=== PATIENT | female | born 1995 | race Two or more races ===

== ENCOUNTER 2025-04-23 02:04 | Inpatient (IN) | payer MEDICAID, SELFPAY ==
[2025-04-23] VITALS (24 sets, daily range): BP systolic 123–155; BP diastolic 65–94; PULSE 69–90; RESP 14–99; TEMP 36.4–37.1; O2SAT 97–99; BMI 32.5
[2025-04-23 03:19] LABS: Basophils % (Auto) 0 % (0-2.5); Eosinophils % (Auto) 0 % (0-10); Hematocrit 34.1 % (36.0-46.0); Hemoglobin 11.9 g/dL (12.0-16.0); Immature Granulocytes % (Auto) 0 % (0-0); Immature Granulocytes Auto 0.03 Thou/mm3 (0.00-0.00); Lymphocytes # (Auto) 2.6 Thou/mm3 (1.0-4.8); Lymphocytes % (Auto) 30 % (10-50); Mean Corpuscular HGB Conc 34.9 g/dl (31.0-37.0); Mean Corpuscular Hemoglobin 32.7 pg (25.0-35.0); Mean Corpuscular Volume 94 fL (80-100); Monocytes # (Auto) 0.8 Thou/mm3 (0.0-0.8); Monocytes % (Auto) 10 % (0-12); Neutrophils % (Auto) 59 % (37-80); Nucleated Red Blood Cell % 0 /100 WBC (0); Platelet Count 251 Thou/mm3 (140-440); RDW Standard Deviation 44.3 fL (36.4-46.3); Red Blood Count 3.64 Miln/mm3 (4.00-5.20); White Blood Count 8.4 Thou/mm3 (3.6-11.0)
[2025-04-23 03:28] LABS: Fibrinogen 441 mg/dL (175-375); INR 0.9 (0.9-1.3); Partial Thromboplastin Time 25.6 Seconds (22.0-36.0); Prothrombin Time 10.3 Seconds (9.0-12.2)
[2025-04-23 03:32] LABS: Alanine Aminotransferase 13 U/L (10-49); Albumin, Serum 3.8 gm/dL (3.5-5.0); Albumin/Globulin Ratio 1.4 (1.2-2.2); Alkaline Phosphatase 111 U/L (46-116); Anion Gap 11 (7-16); Aspartate Amino Transferase 18 U/L (0-34); BUN/Creatinine Ratio 16 Ratio (12-20); Bilirubin,Total 0.3 mg/dL (0.3-1.2); Blood Urea Nitrogen 8 mg/dL (9-23); Calcium 8.9 mg/dL (8.3-10.6); Calcium (Corrected) 9.1 mg/dL (8.5-10.1); Carbon Dioxide 23.5 mMol/L (20.0-31.0); Chloride 104 mMol/L (98-107); Creatinine (Component) 0.5 mg/dL (0.6-1.3); Estimated Creatinine Clearance 179.4 mL/min (>60); Globulin 2.8 gm/dL (2.3-3.5); Glucose 99 mg/dL (74-106); Osmolality,Calculated 273 (275-295); Potassium 3.4 mMol/L (3.4-5.1); Sodium 138 mMol/L (136-145); Total Protein 6.6 gm/dL (5.7-8.2); Uric Acid 4.9 mg/dL (3.1-7.8); eGFR > 60 See Note
[2025-04-23] MEDS: fentaNYL CIT INJ 50 mCg/ML AMP 2ML 100 MCG IVP (03:39)
[2025-04-23] MEDS: Ampicillin Inj 2,000 MG in SODIUM CHLORIDE 0.9% (POP) 100 ML 200 MG IV (03:39)
[2025-04-23 03:50] LABS: Syphilis Nonreactive (Nonreactive)
[2025-04-23 04:35] LABS: Collection Type, Urine Clean Catch
[2025-04-23] MEDS: OXYTOCIN in NS 20 units 20 UNIT/1,000 ML BAG 125 UNIT IV (05:07)
[2025-04-23 05:13] LABS: Bilirubin,Urine Negative (Negative); Blood,Urine Negative (Negative); Clarity,Urine Clear (Clear/Hazy); Color,Urine Colorless (Lt Yel-Yel); Glucose, Urine Trace (Negative); Ketones,Urine Negative (Negative); Leukocyte Esterase,Urine Negative (Negative); Nitrite,Urine Negative (Negative); PH,Urine 6.5 (5.0-7.0); Protein,Urine Trace (Neg - Trace); RBC,Urine 1 /hpf (0-3); Specific Gravity,Urine 1.017 (1.001-1.035); Squamous Epithelial Cell,Urine 1 /hpf (0-5); Urobilinogen,Urine Negative mg/dL (0.0-1.0); WBC,Urine 2 /hpf (0-5)
[2025-04-23 05:20] LABS: Creatinine,Random Urine 46 mg/dL (30-125); Protein Total, Random Urine 43 mg/dL (1-14)
--- NOTE | 2025-04-23 05:29 | PD.LDHP ---
Documentation for date of: 04/23/25 OB Labor/Induct. HPI History of Present Illness Chief complaint: contractions : 3 Para: 2 Term pregnancies: 2 pregnancies: 0 Living children: 2 History of Abortions: Spontaneous and Elective: 0 History of Vaginal deliveries: 2 History of sections: No History of : No Date of last menstrual period: 08/02/24 MARIA ELENA: 05/09/25 Gestational Age (weeks): 37 Gestational Age (days): 5 Gestational age based on last menstrual period: 37 History of present illness: Patient presents for regular, painful ctx. No LOF. No vaginal bleeding. Normal movement. No fevers/chills. History of Present Dating criteria: LMP confirmed by 2nd trimester US Adequate Care: Yes Narrative: : 2018 40wk M G2: 2020 40wk F 6lb Labs Maternal Blood Type: O Pos Labs: Negative: RPR, Hepatitis B, Rubella Titre, HIV, Chlamydia and Gonorrhea and Unknown: Group Beta Strep Narrative: 1hr glucola 104 Review of Systems Review of Systems Narrative Review of Systems: Review of Systems Systems Reviewed: All systems reviewed, normal except as documented Constitutional Constitutional: Denies body ache(s), Denies chills, Denies fever(s) and Denies headache(s) ENT Ears, Nose, Mouth, and Throat: Denies headache(s) and Denies vertigo Cardiovascular Cardiovascular: Denies chest pain, Denies palpitations, Denies dyspnea and Denies syncope Respiratory Respiratory: Denies cough, Denies dyspnea Gastrointestinal Gastrointestinal: Denies nausea and Denies vomiting Neurologic Neurologic: Denies convulsions, Denies headache(s), Denies other visual disturbances, Denies syncope and Denies vertigo Past Medical History Family History OTHER FAMILY HX: non-contributory Surgical History SURGICAL: Negative Section Social History SOCIAL: No tobacco/ETOH/illicit drug use Past Medical History Comments PMH COMMENT: Current BMI 32.6 Meds Home Medications and Allergies Home Medications ?Medication ?Instructions ?Recorded ?Confirmed ?Type vitamin-ferrous fumarate 1 tab PO QDAY 07/06/21 04/23/25 History 28 mg iron-folic acid 800 mcg tablet ( Vitamins with Minerals) Allergies Allergy/AdvReac Type Severity Reaction Status Date / Time No Known Allergies Allergy Verified 04/23/25 03:16 OB Exam Physical Exam Vital signs: Temp Pulse Resp BP Pulse Ox 98.8 F 83 18 148/76 H 99 04/23/25 03:00 04/23/25 05:27 04/23/25 03:00 04/23/25 05:27 04/23/25 03:00 Narrative: General: well developed, well nourished, no acute distress, conversant Cardiac: normal heart rate Lungs: breathing without distress Abdomen: soft, gravid, non-tender, no rebound or guarding Extremities: no pain with palpation of calves Detailed Labor and Delivery Exam Dilation (cm): 5 Effacement (%): 80 Cervix position: mid station: -2 Consistency: soft Presentation: Vertex Membranes: intact monitor accelerations: 15x15 monitor decelerations: None online health and fitness coach variability: Moderate (11-25) Contraction frequency (min): q2-4min OB Results Labs 04/23/25 10:43 04/23/25 03:05 Labs: Short CBC 04/23/25 Range/Units 03:05 WBC 8.4 (3.6-11.0) Thou/mm3 Hgb 11.9 L (12.0-16.0) g/dL Hct 34.1 L (36.0-46.0) % Plt Count 251 (140-440) Thou/mm3 BMP 04/23/25 03:05 Sodium 138 Potassium 3.4 Chloride 104 Carbon Dioxide 23.5 BUN 8 L Creatinine 0.5 L Glucose 99 Calcium 8.9 Liver Function 04/23/25 Range/Units 03:05 Total Bilirubin 0.3 (0.3-1.2) mg/dL AST 18 (0-34) U/L ALT 13 (10-49) U/L Alkaline Phosphatase 111 (46-116) U/L Albumin 3.8 (3.5-5.0) gm/dL Urine 04/23/25 Range/Units 04:28 Urine Color Colorless A (Lt Yel-Yel) Urine Clarity Clear (Clear/Hazy) Urine pH 6.5 (5.0-7.0) Ur Specific [place] 1.017 (1.001-1.035) Urine Protein Trace (Neg - Trace) Urine Glucose (UA) Trace (Negative) OB Assessment & Plan Assessment and Plan (1) Active labor at term: Status: Acute Assessment and plan: Maura is a 29yo with SIUP at 37&5wk presenting in active labor. Regular/painful contractions, SCE: 5/80/-2. Vitals wnl, benign exam. Reassuring assessment. PMhx/ uncomplicated. PNC with Dr. Phillips's office. Plan: -Admit to L&D -Establish IV, routine labs -CEFM -Clear liquid diet -Sales Ledger Clerk/consent re: -GBS status: unknown. Ampicillin per protocol -Anticipate -Safe to proceed
--- NOTE | 2025-04-23 05:33 | OBDSUM_ITS ---
Data (Arboleda) Data Hx Section: No : 3 Term: 2 : 0 Livin Abortions: Spontaneous & Theraputic: 0 Delivery Data (Arboleda) Labor Data Initiation of labor: Spontaneous Induction/Augmentation Agent: None ROM date: 04/23/25 ROM time: 04:59 Amniotic membrane rupture type: Spontaneous Amniotic fluid description: Clear Delivery Data Onset of labor date: 04/22/25 Onset of labor time: 23:00 Complete dilation date: 04/23/25 Complete dilation time: 04:55 delivery date: 04/23/25 delivery time: 04:59 Placenta delivery date: 04/23/25 Placenta delivery time: 05:07 Stage 1 total time: Labor - Stage 1 Duration 5 hours and 55 minutes Delivered by: Mely Delivery nurse: MIRIAM Stacy Neworn nurse: MIRIAM Davis Broomcorn Seeder at delivery: No Delivery Method Delivery method: Normal Vaginal Delivery Presentation: Vertex Anesthesia Type Anesthesia Type: None Placenta Placenta delivery description: Spontaneous Cord blood sent to lab: Yes cord blood collection: Cord Blood Type Episiotomy Episiotomy description: None EBL Estimated blood loss (ml): 100 Umbilical Cord cord description: 3 Vessels Additional Procedures Maura is a 29yo s/p uncomplicated at 37&5wk after presenting in active labor, delivering at 0459 on 04/23/2025. On presentation, SCE was 5cm. She declined epidural. She progressed to C/C/0. I was called by RN for delivery and immediately came to delivery room. On arrival, infant was on maternal chest with good lusty cry. Infant was delivered by RN within a minute of my arrival. Apgars 9/9. nose/mouth were suctioned and infant dried/stimulated. After approximately 2 minutes, cord was clamped x2 and cut by patient. Cord blood collected for typing. With fundal massage and cord traction, placenta delivered spontaneously and intact with 3 vessel centrally inserted cord. Fundal massage performed and IV pitocin given per protocol with fundus then firm at u-2cm and hemostasis noted. Inspection of perineum and vagina revealed a very small vj-urethral abrasion that was hemostatic and required no repair. All counts correct x2. Mom and infant were doing well when I left the room. Shaylee Boone MD Complications Complications: none [place] Data (Arboleda) [place] Data order: 1 [place]'s gender: Male Identification band number: [id number] weight (gms): 3330 g Weight (pounds): 7 lbs and 5.5 ozs length: 50.8 cm 1 minute: 9 5 minutes: 9 10 minutes: 9
[2025-04-23] MEDS: BENZO/LANO/ALOE (Dermoplast) 60 GM CAN 1 SPRAY TOP (06:29)
[2025-04-23] MEDS: IBUPROFEN TAB 400 MG TABLET 800 MG PO ×2 (07:22→22:36)
[2025-04-23] MEDS: DOCUSATE SOD 100 MG CAPSULE PO (07:23)
[2025-04-23] MEDS: PRENATAL VITAMIN/FE FUM/FA TABLET 1 TAB PO (07:23)
[2025-04-23 10:58] LABS: Basophils % (Auto) 0 % (0-2.5); Eosinophils % (Auto) 0 % (0-10); Hemoglobin 11.5 g/dL (12.0-16.0); Immature Granulocytes % (Auto) 1 % (0-0); Immature Granulocytes Auto 0.07 Thou/mm3 (0.00-0.00); Lymphocytes # (Auto) 1.7 Thou/mm3 (1.0-4.8); Lymphocytes % (Auto) 11 % (10-50); Mean Corpuscular HGB Conc 35.9 g/dl (31.0-37.0); Mean Corpuscular Hemoglobin 33.6 pg (25.0-35.0); Mean Corpuscular Volume 94 fL (80-100); Monocytes % (Auto) 7 % (0-12); Neutrophils # (Auto) 12.5 Thou/mm3 (1.8-7.7); Neutrophils % (Auto) 81 % (37-80); Nucleated Red Blood Cell % 0 /100 WBC (0); Platelet Count 243 Thou/mm3 (140-440); RDW Standard Deviation 44.4 fL (36.4-46.3); Red Blood Count 3.42 Miln/mm3 (4.00-5.20); White Blood Count 15.4 Thou/mm3 (3.6-11.0)
--- NOTE | 2025-04-23 22:38 | PC.NURSE ---
Access chart to assist primary Nurse.
[2025-04-24 00:23] VITALS: BP 120/74; PULSE 77; RESP 16; TEMP 36.6; O2SAT 97
[2025-04-24 04:00] VITALS: BP 115/73; PULSE 72; RESP 14; TEMP 36.6; O2SAT 96
[2025-04-24 07:45] VITALS: BP 126/84; PULSE 73; RESP 12; TEMP 36.4; O2SAT 97
[2025-04-24] MEDS: PRENATAL VITAMIN/FE FUM/FA TABLET 1 TAB PO (09:10)
[2025-04-24 10:45] VITALS: BP 125/78; PULSE 88; RESP 12; TEMP 36.7; O2SAT 97
[2025-04-24] MEDS: ACETAMINOPHEN 325 MG TABLET 650 MG PO ×2 (11:02→19:55)
[2025-04-24 17:10] VITALS: BP 132/77; PULSE 80; RESP 12; TEMP 36.8; O2SAT 96
[2025-04-24 19:41] VITALS: BP 134/83; PULSE 78; RESP 17; TEMP 36.9; O2SAT 98
--- NOTE | 2025-04-24 20:37 | PC.NURSE ---
193: PRIMARY RN AND DR ALFONSO AT BEDSIDE, PATIENT ASSESSED BY MD. POC DISCUSSED WITH PATIENT. ALL QUESTIONS ANSWERED, PATIENT VERBALIZES UNDERSTANDING. POC ESTABLISHED FOR POSSBILE DISCHARGE HOME TOMORROW.
[2025-04-24] MEDS: DOCUSATE SOD 100 MG CAPSULE PO (21:17)
[2025-04-25 04:15] VITALS: BP 128/85; PULSE 77; RESP 16; TEMP 36.8; O2SAT 96
[2025-04-25] MEDS: ACETAMINOPHEN 325 MG TABLET 650 MG PO (04:30)
--- NOTE | 2025-04-25 07:29 | PD.LDPPPRG ---
Subjective Subjective Interval history: Delivery type: , patient stayed over because OB was under phototherapy Patient doing well this morning. No acute complaints. Ambulating, tolerating p.o. and voiding without difficulty. HTN/Pre-Eclampsia screen: No chest pain, shortness of breath, headache, visual changes, epigastric or right upper quadrant pain. Breast-feeding, lochia diminishing. Bowel: Flatus+/ BM+ Exam Vital Signs Temp Pulse Resp BP Pulse Ox O2 Del Method 98.3 F 77 16 128/85 H 96 Room Air 04/25/25 04:15 04/25/25 04:15 04/25/25 04:15 04/25/25 04:15 04/25/25 04:15 04/25/25 04:15 Constitutional Constitutional: no acute distress Routine HEENT Exam Head: Present normocephalic and atraumatic Eye: Present EOMI and PERRL ENT: Present mucous membranes moist Routine Neck Exam Neck: Present supple and trachea midline Routine Respiratory Exam Respiratory: Present chest non-tender, lungs clear, normal breath sounds and no resp distress Routine Cardiovascular Exam Cardiovascular: Present RRR Routine Abdominal Exam Abdominal: Present soft and normoactive bowel sounds Routine Extremities Exam Extremities: Present full ROM Routine Skin Exam Skin: Present intact, dry and warm Routine Neurological Exam Neurological: Present alert, oriented X3 and CN II-XII intact Routine Psychiatric Exam Psychiatric: Present normal affect and normal thought process Objective Labs 04/23/25 10:43 04/23/25 03:05 Assessment & Plan Problem List (1) Active labor at term: Status: Acute Assessment and plan: PPD/POD#2 1. Continue routine care 2. Transition to PO meds. 3. Encourage to ambulate/ breast-feed 4. Anticipate discharge home today. Time Spent With Patient Time: Total time spent is greater than 50% in coordination of care (as documented) at patient's floor/unit and/or counseling patient:
--- NOTE | 2025-04-25 07:30 | ESDS_ITS ---
DS: Providers Provider Date of admission: 04/23/25 02:26 Primary care physician: Physician No Primary/Family Admitting Provider: Shaylee Boone MD Attending Provider on Admission: David Chance MD Consults: 04/23/25 05:27 Referral Routine Comment: Attending Provider on DC: David Chance MD Discharging Provider: David Chance MD DS: Diagnosis Discharge Diagnosis (1) Active labor at term: Status: Acute Problem List Completed Was Problem List Reviewed/Reconciled?: Yes Summary/Hosp Course Brief History: Patient presents for regular, painful ctx. No LOF. No vaginal bleeding. Normal movement. No fevers/chills. Peripartum Data Delivery Method: Normal Vaginal Delivery Episiotomy Description: None Time Spent with Patient Time attestation: Total time spent providing and/or coordinating discharge services: Exam Vital Signs Temp Pulse Resp BP Pulse Ox O2 Del Method 98.3 F 77 16 128/85 H 96 Room Air 04/25/25 04:15 04/25/25 04:15 04/25/25 04:15 04/25/25 04:15 04/25/25 04:15 04/25/25 04:15 Discharge Plan Plan Patient Disposition: HOME (Self Care) Patient condition on transfer: Stable Prescriptions/Referrals Prescriptions/Med Rec: New docusate sodium 100 mg Capsule 100 mg PO BID 10 Days Qty: 20 0RF ibuprofen 800 mg tablet 800 mg PO Q8H PRN (Reason: See Comments) 5 Days Qty: 10 0RF Continued vit-iron fum-folic ac [ Vitamin with Minerals] 28 mg iron- 800 mcg Tablet 1 tab PO QDAY Discontinued acetaminophen [Tylenol Extra Strength] 500 mg tablet 1,000 mg PO Q6H PRN (Reason: pain) Qty: 60 0RF ibuprofen 600 mg tablet 600 mg PO Q6H PRN (Reason: pain) Qty: 90 0RF ibuprofen 800 mg tablet 800 mg PO TID PRN (Reason: pain) Qty: 30 0RF Referrals: No Primary/Family,Physician [Primary Care Provider] - Patient/Caregiver Discharge Instructions Discharge Activity: activity as tolerated and other Other Discharge Activity Instructions:: vaginal rest and no heavy lifting more than 10 pounds for 6 weeks Other Discharge Diet Instructions: regular Education Materials: After a Vaginal , : Caring for Yourself Print Language: Palestinian Activity Restrictions/Additional Instructions: follow up with Dr. Phillips in 2 to 4 weeks for visit, call clinic to obtain appointment Stand Alone Forms: Lizzie Award Info., Patient Portal Info Letter Discharge Order Discharge Orders: Discharge (Routine); Ordered 04/25/25 Ordered By: David Chance Planned Discharge Date 04/25/25
[2025-04-25 07:45] VITALS: BP 126/80; PULSE 84; RESP 12; TEMP 36.4; O2SAT 97
[2025-04-25] MEDS: PRENATAL VITAMIN/FE FUM/FA TABLET 1 TAB PO (07:55)
[2025-04-25] MEDS: DOCUSATE SOD 100 MG CAPSULE PO (07:55)
== END 2025-04-25 13:12 | disposition home or self-care (01) | DRG 560 ==
LOC: S4SX 05:38 → S4NX 08:14
PROVIDERS: Admitting Provider Obstetrics & Gynecology; Visit Provider Obstetrics & Gynecology
DX: O71.82 Other specified trauma to perineum and vulva (principal); Z37.0 Single live birth; Z3A.37 37 weeks gestation of pregnancy
CPT/HCPCS: 36415; 59409; 80053; 81001; 82570; 84156; 84550; 85025; 85384; 85610; 85730; 86780; 86850; 86900; 86901; 94762; J0290; J2590; J3010; A9270